=== PATIENT | male | born 1985 | race Caucasian/White ===

== ENCOUNTER 2016-11-29 10:22 | Emergency (ER) | payer OTHER ==
[~2016-11-29] VITALS: Ht 172.7 cm; Wt 78.6 kg
[2016-11-29] MEDS ORDERED: KETOROLAC 60 MG/2 ML VIAL (J1885) IM ONE (11:00)
[2016-11-29] MEDS ORDERED: METHOCARBAMOL 500 MG TAB PO ONE (11:00)
[2016-11-29] MEDS ORDERED: IBUP80TA PO ×2 (11:45→12:03)
[2016-11-29] MEDS ORDERED: ROBA500T PO ×2 (11:45→12:03)
--- NOTE | 2016-11-29 11:47 | REP ---
LUMBAR SPINE SERIES: Five views. HISTORY: Low back pain. Radiating down the left lower extremity. FINDINGS: Lumbar vertebral body heights are preserved. Alignment is normal. Pedicles and posterior elements are intact. There is no evidence of spondylolysis or spondylolisthesis. Facets are normally aligned. Sacrum and SI joints are intact. Psoas margins are symmetric. IMPRESSION: Normal lumbar spine radiographs. Signed by Cam Paulino MD 11/29/2016 02:13 P
[2016-11-29 12:03] VITALS: BP 130/70
== END 2016-11-29 12:05 | disposition home or self-care (01) ==
LOC: M ED 10:22
DX: S39.012A Strain of muscle, fascia and tendon of lower back, initial encounter (principal); X58.XXXA Exposure to other specified factors, initial encounter; Y92.89 Other specified places as the place of occurrence of the external cause; Y93.89 Activity, other specified; Y99.8 Other external cause status; M25.511 Pain in right shoulder; M25.512 Pain in left shoulder; G89.29 Other chronic pain
CPT/HCPCS: 72110; 96372; 99282; J1885

== ENCOUNTER 2016-12-04 17:44 | Emergency (ER) | payer OTHER ==
[~2016-12-04] VITALS: Ht 172.7 cm; Wt 79.4 kg
[~2016-12-04 17:44] MED LIST: IBUP80TA PO; ROBA500T PO
--- NOTE | 2016-12-04 19:01 | REP ---
PA and lateral chest: There are no comparisons. The lung pak are clear. The cardiac size is normal The linda, mediastinum, and bony thorax are unremarkable. Impression: Negative PA and lateral chest. Signed by Lul Ferris MD 12/04/2016 06:52 P
[2016-12-04] MEDS ORDERED: ASPIRIN 81 MG CHEW TABLET PO ONE (19:30)
[2016-12-04] MEDS ORDERED: NITROGLYCERIN 0.4 MG SUBL TABLET SL PRN (19:30)
[2016-12-04 19:38] VITALS: BP 133/90
[2016-12-04 19:46] LABS: BASO % 0.4 % (0.0-1.0); EOS # 0.1 10^3/uL (0.0-0.50); EOS % 0.5 % (0.0-3.0); IMMATURE GRANULOCYTE % 0.2 % (0-0); LYMPH # 2.1 10^3/uL (1.5-4.5); LYMPH % 21.8 % (24.0-44.0); MEAN CORPUSCULAR HEMOGLOBIN 29.5 pg (27.0-33.0); MEAN CORPUSCULAR HGB CONC 34.8 g/dl (32.0-36.5); MEAN CORPUSCULAR VOLUME 84.6 fl (80.0-96.0); MONO # 0.7 10^3/uL (0.0-0.8); MONO % 7.2 % (0.0-5.0); NEUTROPHILS # 6.7 10^3/uL (1.8-7.7); NEUTROPHILS % 69.9 % (36.0-66.0); PLATELET COUNT, AUTOMATED 198 10^3/uL (150-450); RED CELL DISTRIBUTION WIDTH 12.4 % (11.5-14.5); WHITE BLOOD COUNT 9.6 10^3/uL (4.0-10.0)
--- NOTE | 2016-12-04 19:50 | REPUSA ---
CT of the head Clinical history: CVA. Technique: Multiple axial CT images were obtained through the head without administration of contrast . Findings: The ventricles and sulci are symmetric bilaterally. There is no evidence of acute hemorrhag e or infarct. There is no midline shift, mass effect, or extra-axial fluid collection. The osseous st ructures are unremarkable. The visualized paranasal sinuses and mastoid air cells are clear. Impression: Negative study.
[2016-12-04 19:58] LABS: INR 0.98
[2016-12-04 20:16] LABS: ALBUMIN 4.1 GM/DL (3.2-5.2); ALBUMIN/GLOBULIN RATIO 1.21 (1.00-1.93); ALKALINE PHOSPHATASE 69 U/L (45-117); ALT/SGPT 27 U/L (12-78); ANION GAP 7 MEQ/L (8-16); AST/SGOT 20 U/L (15-37); BILIRUBIN,DIRECT 0.1 MG/DL (0.0-0.2); BILIRUBIN,TOTAL 0.6 MG/DL (0.2-1.0); BLOOD UREA NITROGEN 10 MG/DL (7-18); CALCIUM LEVEL 8.6 MG/DL (8.5-10.1); CARBON DIOXIDE LEVEL 27 MEQ/L (21-32); CHLORIDE LEVEL 108 MEQ/L (98-107); CREATININE FOR GFR 1.06 MG/DL (0.70-1.30); GLOMERULAR FILTRATION RATE > 60.0 (>60); GLUCOSE, FASTING 110 MG/DL (70-105); POTASSIUM SERUM 3.4 MEQ/L (3.5-5.1); SODIUM LEVEL 142 MEQ/L (136-145); TOTAL PROTEIN 7.5 GM/DL (6.4-8.2)
[2016-12-04] MEDS ORDERED: POTASSIUM CHLORIDE 10 MEQ SR TABLET PO ONE (20:30)
--- NOTE | 2016-12-04 20:30 | REPUSA ---
Clinical history: Pain, swelling. Findings: The left common femoral, superficial femoral, popliteal, and other deep venous structures c ompress normally and demonstrate normal color Doppler flow. Normal venous waveforms with augmentation are seen. Impression: No evidence of deep vein thrombosis in the left femoral popliteal venous system.
[2016-12-04] MEDS ORDERED: ISOVUE-370 76% 100ML VIAL (Q9967) As Ordered ONE (21:30)
--- NOTE | 2016-12-04 22:30 | REPUSA ---
CT angiogram of the chest Clinical statement: Chest pain and shortness of breath. Technique: Multiple axial CT images were obtained from the thoracic inlet through the upper abdomen a fter a bolus administration of nonionic intravenous contrast. Coronal and sagittal reconstructions we re also obtained. No comparison is available. Findings: The pulmonary arteries are well-opacified with contrast, with no intraluminal filling defec ts to suggest embolism. The thoracic aorta is unremarkable. Thyroid gland is within normal limits. Th ere is no thoracic lymphadenopathy. There are no pericardial or pleural effusions. The lungs are fausto r. Limited imaging of the upper abdomen is unremarkable. There are no suspicious osseous lesions. Impression: Unremarkable CT examination of the chest. No evidence of pulmonary embolism.
[2016-12-04 23:36] LABS: MAGNESIUM LEVEL 2.1 MG/DL (1.8-2.4)
[2016-12-04 23:52] LABS: ERYTHROCYTE SEDIMENTATION RATE 4 mm/hr (0-15)
[2016-12-05] MEDS ORDERED: ACETAMINOPHEN TAB 650MG DOSE (2X325MG) PO PRN (00:15)
[2016-12-05] MEDS ORDERED: ONDANSETRON 4MG/2ML VIAL (J2405) IV PRN (00:15)
[2016-12-05] MEDS ORDERED: PERCOCET 5MG/325MG TAB PO PRN (00:15)
--- NOTE | 2016-12-05 03:10 | REPUSA ---
CLINICAL HISTORY: Weakness and numbness. TECHNIQUE: MRI of the brain was performed without administration of intravenous contrast material. T1 spine echo, T2 fast spin echo and FLAIR sequences were obtained in sagittal, axial and coronal plane s. FINDINGS: The sella and parasellar regions are unremarkable in appearance. The corpus callosum and cerebellar t onsils are of normal configuration and position. There are no intra or extra-axial collections. There is no mass effect or midline shift. There is no evidence of hematoma formation. There is no hydrocep halus. The brain stem shows no mass effects, infarcts or hemorrhage. There are no cerebellopontine tumors. T he acoustic nerves are symmetrical. No cerebellar intra-axial pathology delineated. The fourth ventri gregoria and aqueduct are normal. No abnormalities of the optic nerves are identified. No dural or subdura l masses or collections are detected. The visualized arterial structures demonstrate normal appearing flow voids. The VII and VIII nerve bu ndles are visualized and are unremarkable in appearance. There are no suspicious signal abnormalities within the infra or supratentorial space. Chronic mucous retention cyst in the left maxillary sinus. Mild chronic mucosal inflammatory changes in the ethmoid air cells. IMPRESSION: Normal MRI of the brain. No acute intracranial pathology. Thank you for your kind referral of this patient.
--- NOTE | 2016-12-05 03:20 | REPUSA ---
REASON FOR EXAM: Left-sided weakness/numbness. TECHNIQUE: Axial and sagittal T1 and T2 weighted images were obtained. Fat suppressed images were als o obtained. COMPARISON: None. FINDINGS: Mild diffuse spondylotic changes. Findings are demonstrated by diffuse disc dehydration, disc space n arrowing, osteophyte formation and degenerative endplate changes. Diffuse facet joint arthropathy and degenerative uncovertebral joint disease. There is normal signal intensity from the visualized bone marrow without evidence of replacement or a cute fracture. The visualized portions of the spinal cord are unremarkable. The visualized portions of the posterior fossa are unremarkable. There is normal cervical lordosis. The vertebral alignment is within normal limits. Evaluation of the individual levels revealed the following: C2-C3: There is no evidence of disk herniation. The spinal canal is not narrowed. There is no evidenc e of neural foramina narrowing. C3-C4: There is mild diffuse disc bulge and posterior osteophyte formation. The spinal canal is not n arrowed. There is moderate bilateral neural foramina narrowing. C4-C5: There is mild diffuse disc bulge and posterior osteophyte formation. The spinal canal is not n arrowed. There is mild right and moderate left neural foramina narrowing. C5-C6: There is mild diffuse disc bulge. Superimposed central/left paracentral disc extrusion measuri ng 1.4x0.4 cm in its largest craniocaudal and anteroposterior dimensions respectively. Cranial sublig amentous slippage of the herniated disc without sequestration. The spinal canal is not narrowed. Ther e is moderate bilateral neural foramina narrowing on the left. C6-C7: There is mild diffuse disc bulge. The spinal canal is not narrowed. There is no evidence of ne ural foramina narrowing. Impression: Spondylosis. Multilevel degenerative disc disease. Thank you for your kind referral of this patient. We appreciate opportunity to participate in this pa markus's care.
[2016-12-05] MEDS ORDERED: NS 1,000 ML IV SCH (04:30)
[2016-12-05 04:40] LABS: ANION GAP 5 MEQ/L (8-16); BLOOD UREA NITROGEN 10 MG/DL (7-18); CALCIUM LEVEL 9.5 MG/DL (8.5-10.1); CARBON DIOXIDE LEVEL 31 MEQ/L (21-32); CHLORIDE LEVEL 107 MEQ/L (98-107); GLOMERULAR FILTRATION RATE > 60.0 (>60); GLUCOSE, FASTING 90 MG/DL (70-105); POTASSIUM SERUM 4.3 MEQ/L (3.5-5.1); SODIUM LEVEL 143 MEQ/L (136-145)
--- NOTE | 2016-12-05 05:35 | ECGEPIP ---
Stationary ECG Study [facility] - ED Test Date: 2016-12-04 Pat Name: SANDRA MALDONADO Department: Room: - Gender: M Product Design Engineer: AF : [id number] Requested By: ALEM Pace Order Number: [id number] Reading MD: Wang Centeno Measurements Intervals [place] Rate: 84 P: 59 MN: 141 QRS: 12 QRSD: 92 T: 30 QT: 353 QTc: 417 Interpretive Statements SINUS RHYTHM BASELINE ARTIFACT AFFECTS INTERPRETATION NO PRIORS Electronically Signed On 12-05-2016 5:35:09 EDT by Wang Centeno
[2016-12-05 06:15] VITALS: BP 113/66
--- NOTE | 2016-12-05 06:26 | ER ---
DATE OF CONSULTATION: 12/05/2016 CONSULTATION REPORT FOR: Dr. Alexi Rao PRIMARY CARE PROVIDER: Ulrichlizette Lauren CHIEF COMPLAINT: Left-sided chest pain and left-sided upper and lower extremity numbness and left-sided weakness. HISTORY OF PRESENT ILLNESS: This is a 31-year-old male patient with no significant past medical history, active duty , with right shoulder injuries and also right shoulder chronic pain and also cervical spine disease that has been actively worked up. Patient presented to the emergency room with acute onset around 4:30 yesterday p.m. of left-sided chest pain that is sharp and also radiating to left upper and left lower extremity with numbness and paraesthesia. Patient went to the emergency department (ED). Patient stated that earlier a week ago patient had similar symptom lasted a couple of hours and subsequently resolved. In the emergency room, patient reported the chest pain progressively improved as well as the numbness, but the weakness persisted. On physical exam, it is predominantly left lower extremity and patient denies any relieving or exacerbating factor. No diaphoresis. Does not smoke cigarette. No family history of coronary artery disease. Baseline relatively healthy. Patient stated that some of the symptoms can be reproduced by certain neck positioning and patient also have right upper extremity numbness and tingling and pain when neck is at certain position. Denies any fever or chill. ALLERGIES: To METHOCARBAMOL. PAST MEDICAL HISTORY: Chronic right shoulder pain and cervical neck disease. PAST SURGICAL HISTORY: None. SOCIAL HISTORY: Patient drinks one beer every other day to every day. Denies smoking. No illicit drug use. Active duty . FAMILY HISTORY: Denies family history of premature coronary artery disease. REVIEW OF SYSTEMS: Reported left-sided chest pain sharp, left upper and lower extremity pain and weakness and numbness. All other review of systems are negative. HOME MEDICATION: None. PHYSICAL EXAMINATION: VITAL SIGNS: Temperature 97.6. Pulse 48. Respirations 18. Blood pressure 113/70. Pulse oximetry 97% on room air. GENERAL: Patient alert, oriented times three, in no acute distress. HEENT: Normocephalic, atraumatic. NECK: With cervical spine vertebral point tenderness around L5, L6. PULMONARY: Bilateral clear to auscultation. CARDIAC: Regular rate and rhythm. Normal S1, S2. ABDOMEN: Soft, nontender. Positive bowel sounds. EXTREMITIES: No clubbing, cyanosis or edema. NEUROLOGIC: Cranial nerves II-XII grossly intact. Yihckh-yw-evbt intact. Bilateral upper extremities seems to have symmetrical strength. Left lower extremity slightly weaker than the right. Sensation to light touch intact. Peripheral pulses intact. BACK: Patient had lumbar spine point tenderness as well. EKG: Shows sinus rhythm with no ST segment changes. LABORATORY: WBC 9.6, hemoglobin and hematocrit 14.2/40.8, platelets 198. Chemistry: Sodium 143, potassium 4.3, chloride 107, bicarbonate 31, BUN 10, creatinine 1. CT OF HEAD: Negative. ULTRASOUND DOPPLER: Negative for deep venous thrombosis (DVT). CT ANGIOGRAPHY: Negative for pulmonary embolism (PE). MRI OF THE BRAIN: Within normal limits. CERVICAL SPINE MRI: Shows multilevel degenerative disc disease with neural foraminal narrowing and spondylosis. ASSESSMENT AND PLAN: This is a 31-year-old male patient with underlying medical history of cervical neck disease presented to the hospital with left-sided chest pain as well as left upper and lower extremity pain with left-sided weakness and paraesthesia. PROBLEMS: 1. Left-sided chest pain. Workup negative for PE. Cardiac enzymes are negative times two. EKG within normal limits. Likely musculoskeletal versus neurologic condition that is contributing. 2. Left-sided upper and lower extremity paraesthesia and weakness. On physical exam, only left lower extremity weakness is prominent. Reflexes are intact bilateral. MRI of the cervical spine has been done. MRI of the brain was negative for stroke. Case has been discussed with neurology. As per neurology, Dr. Candelaria recommending getting MRI of the brain and cervical spine to look for disease, which was done. If MRI of the cervical spine shows any active disease, recommend transfer given no neurosurgical coverage available at this time and patient did not have any prior weakness to prior to this day and all symptoms are recent and acute and patient is baseline healthy. Furthermore, it is noted that [facility] does not offer inpatient nerve conduction studies or inpatient electromyograms (EMGs). Subsequently, admitting the patient will not accomplish much other than physical therapy, which the underlying issue needs to be looked after prior to doing physical therapy. Case also discussed with orthopedic, Dr. Richards, who does not do spine surgery. Subsequently, if symptom is believed to be related to be possible cervical versus lumbar spine, it is recommended by Dr. Richards that patient be transferred. Subsequently, case discussed with Dr. Rao recommending Dr. Rao to transfer the patient for neurosurgical versus spinal orthopedic evaluation for patient with left lower extremity weakness and no neurosurgical coverage verified on schedule further workup as per assessing physician in terms of MRI of the lumbar spine as well as thoracic spine. No injury reported by the patient. Patient does not have any urine retention or fecal incontinence at this time.
[2016-12-05] MEDS ORDERED: SENOKOT S TAB PO SCH (09:00)
[2016-12-05] MEDS ORDERED: ENOXAPARIN 30 MG/0.3 ML SYR (J1650) SC SCH (09:00)
== END 2016-12-05 06:34 | disposition short-term general hospital (02) ==
LOC: EDBD 17:44 → M ED 17:44
DX: R07.9 Chest pain, unspecified (principal); R53.1 Weakness
CPT/HCPCS: 36415; 70450; 70551; 71020; 71275; 72141; 80048; 80076; 82550; 82553; 83690; 83735; 85025; 85610; 85652; 85730; 86140; 93005; 93041; 93971; 94760; 96372; 96374; 99285; Q9967

== ENCOUNTER 2017-01-16 00:27 | Emergency (ER) | payer OTHER ==
[~2017-01-16] VITALS: Ht 172.7 cm; Wt 76.4 kg
[2017-01-16 00:53] VITALS: BP 124/74
[2017-01-16] MEDS ORDERED: DULO30CA PO (00:56)
[2017-01-16] MEDS ORDERED: NAPR500T PO (05:37)
[2017-01-16] MEDS ORDERED: PERC5TAB12 PO (05:37)
[2017-01-16] MEDS ORDERED: VALI5TAB PO (05:37)
[2017-01-16] MEDS ORDERED: diazePAM 5 MG TAB PO ONE (05:45)
[2017-01-16] MEDS ORDERED: NAPROXEN 250 MG TAB PO ONE (05:45)
[2017-01-16] MEDS ORDERED: PERCOCET 5MG/325MG TAB PO ONE (05:45)
== END 2017-01-16 05:55 | disposition home or self-care (01) ==
LOC: M ED 00:27
DX: M54.9 Dorsalgia, unspecified (principal)

== ENCOUNTER 2017-06-11 17:39 | Emergency (ER) | payer OTHER ==
[2017-06-11 19:20] LABS: BASO % 0.8 % (0.0-1.0); EOS # 0.1 10^3/uL (0.0-0.50); EOS % 1.8 % (0.0-3.0); HEMATOCRIT 39.6 % (42.0-52.0); HEMOGLOBIN 13.9 g/dl (13.5-17.5); IMMATURE GRANULOCYTE % 0.2 % (0-3.0); LYMPH # 1.8 10^3/uL (1.5-4.5); LYMPH % 35.8 % (24.0-44.0); MEAN CORPUSCULAR HGB CONC 35.1 g/dl (32.0-36.5); MEAN CORPUSCULAR VOLUME 82.7 fl (80.0-96.0); MONO # 0.4 10^3/uL (0.0-0.8); MONO % 8.4 % (0.0-5.0); NEUTROPHILS # 2.7 10^3/uL (1.8-7.7); PLATELET COUNT, AUTOMATED 220 10^3/uL (150-450); RED BLOOD COUNT 4.79 10^6/uL (4.30-6.10); RED CELL DISTRIBUTION WIDTH 12.1 % (11.5-14.5); WHITE BLOOD COUNT 5.1 10^3/uL (4.0-10.0)
[2017-06-11] MEDS: NS 1,000 ML IV (19:21)
[2017-06-11 19:27] LABS: ANION GAP 8 MEQ/L (8-16); BLOOD UREA NITROGEN 11 MG/DL (7-18); CALCIUM LEVEL 9.2 MG/DL (8.5-10.1); CARBON DIOXIDE LEVEL 27 MEQ/L (21-32); CHLORIDE LEVEL 107 MEQ/L (98-107); CPK CREATINE PHOSPHOKINASE 224 U/L (39-308); CREATININE FOR GFR 1.21 MG/DL (0.70-1.30); GLOMERULAR FILTRATION RATE > 60.0 (>60); GLUCOSE, FASTING 92 MG/DL (70-100); POTASSIUM SERUM 3.4 MEQ/L (3.5-5.1); SODIUM LEVEL 142 MEQ/L (136-145)
[2017-06-11] MEDS: POTASSIUM CHLORIDE 10 MEQ SR TABLET PO (19:34)
== END 2017-06-11 20:24 | disposition home or self-care (01) ==
LOC: M ED 17:39
DX: R55 Syncope and collapse (principal); E87.6 Hypokalemia; R00.1 Bradycardia, unspecified; Z79.899 Other long term (current) drug therapy; Z88.8 Allergy status to other drugs, medicaments and biological substances
CPT/HCPCS: 93005

== ENCOUNTER 2017-10-19 10:14 | Day surgery (SDC) | payer OTHER ==
[2017-10-19] MEDS ORDERED: NS 1,000 ML IV (10:30)
[2017-10-19] MEDS ORDERED: fentaNYL 100 MCG/2 ML INJECTION (J3010) As Ordered (10:53)
[2017-10-19] MEDS ORDERED: MIDAZOLAM INJ 2 MG/2 ML VIAL (J2250) As Ordered (10:53)
[2017-10-19] MEDS ORDERED: PROPOFOL 200 MG/20 ML VIAL As Ordered ×2 (10:54)
[2017-10-19] MEDS ORDERED: LIDOCAINE 2% INJ 100 MG/5 ML SDV (FOR ANES.) As Ordered (10:54)
== END 2017-10-19 13:30 | disposition home or self-care (01) ==
LOC: M OPP 10:14
DX: K92.1 Melena (principal); K59.00 Constipation, unspecified; D12.5 Benign neoplasm of sigmoid colon; K64.8 Other hemorrhoids; R13.10 Dysphagia, unspecified; K21.0 Gastro-esophageal reflux disease with esophagitis; K29.70 Gastritis, unspecified, without bleeding; R55 Syncope and collapse; R12 Heartburn; M19.90 Unspecified osteoarthritis, unspecified site; F41.9 Anxiety disorder, unspecified; F32.9 Major depressive disorder, single episode, unspecified; R51 Headache; F43.10 Post-traumatic stress disorder, unspecified; G47.30 Sleep apnea, unspecified; R06.83 Snoring; R41.3 Other amnesia; Z88.8 Allergy status to other drugs, medicaments and biological substances
CPT/HCPCS: 45385